=== PATIENT | female | born 1965 | race Hispanic/Latino ===

== ENCOUNTER 2020-11-13 20:53 | Inpatient (IN) | payer OTHER ==
[~2020-11-13] VITALS: Ht 157.5 cm; Wt 88.2 kg
[2020-11-13 21:04] VITALS: BP 140/73
[2020-11-13] MEDS ORDERED: 0.9%NACL 1000ML 1,000 ML IV ONE (21:30)
[2020-11-13 21:40] LABS: BASOPHILS % (AUTO) 0.3 % (0.0-5.0); EOSINOPHILS % (AUTO) 1.3 % (0.0-8.0); HEMATOCRIT 35.1 % (36-48); LYMPHOCYTES % (AUTO) 19.6 % (21.0-51.0); MEAN CORPUSCULAR HEMOGLOBIN 28.4 pg (27.0-33.0); MEAN CORPUSCULAR HGB CONC 32.2 g/dL (32.0-36.0); MEAN CORPUSCULAR VOLUME 88.2 fL (79-99); MONOCYTES % (AUTO) 8.6 % (3.0-13.0); NEUTROPHILS % (AUTO) 69.9 % (40.0-77.0); PLATELET COUNT (AUTO) 258 K/uL (130-400); RED BLOOD CELL COUNT(AUTO) 3.98 MIL/uL (4.00-5.50); RED CELL DISTRIBUTION WIDTH 14.3 % (11.0-15.5); WHITE BLOOD COUNT (AUTO) 7.5 K/uL (4.8-10.8)
[2020-11-13 21:50] LABS: INR 0.93 (0.85-1.15); PROTHROMBIN TIME 10.2 SEC (9.6-11.6)
[2020-11-13 21:51] LABS: PARTIAL THROMBOPLASTIN TIME 23.5 SEC (26.3-35.5)
[2020-11-13 22:04] LABS: B-TYPE NATRIURETIC PEPTIDE 61 pg/mL (0-100)
[2020-11-13 22:08] LABS: ALBUMIN 3.6 g/dL (3.5-5.0); BILIRUBIN,TOTAL 0.4 mg/dL (0.2-1.0); CREATININE 0.8 mg/dL (0.5-1.5); TOTAL PROTEIN, SERUM 7.2 g/dL (6.0-8.3)
[2020-11-14] VITALS (9 sets, daily range): BP systolic 128–161; BP diastolic 49–71
[2020-11-14] MEDS ORDERED: MAG/ALUM/SIMETH 30 ML UDCUP PO PRN (02:30)
[2020-11-14] MEDS ORDERED: 0.9%NACL 1000ML 1,000 ML IV ONE (02:30)
[2020-11-14] MEDS ORDERED: HYDRALAZINE 20MG/ML VIAL IV PRN (02:30)
[2020-11-14] MEDS ORDERED: ACETAMINOPHEN 325 MG TAB PO PRN ×2 (02:30)
[2020-11-14] MEDS ORDERED: ONDANSETRON 4MG INJ IV PRN (02:30)
[2020-11-14] MEDS ORDERED: NITROGLYCERIN 0.4 MG SL TAB SL PRN (02:30)
[2020-11-14] MEDS ORDERED: LACTATED RINGERS 1000ML 1,000 ML IV SCH (03:00)
[2020-11-14] MEDS: LACTATED RINGERS 1000ML 1,000 ML IV SCH ×2 (03:31→08:14)
[2020-11-14 05:49] LABS: APPEARANCE,URINE Cloudy (CLEAR); BILIRUBIN,URINE Negative (NEGATIVE); COLOR,URINE Yellow (YELLOW); GLUCOSE, URINE (UA) >=1000 mg/dL (NEGATIVE); KETONES,URINE Trace mg/dL (NEGATIVE); LEUKOCYTE ESTERASE ,URINE Negative (NEGATIVE); NITRATE,URINE Positive (NEGATIVE); OCCULT BLOOD,URINE Large (NEGATIVE); PROTEIN,URINE POS 2+ mg/dL (NEGATIVE)
[2020-11-14] MEDS ORDERED: DULO30CA52 PO (06:05)
[2020-11-14] MEDS ORDERED: ROSU40TA21 PO (06:05)
[2020-11-14] MEDS ORDERED: VITAD50000 PO (06:05)
[2020-11-14] MEDS ORDERED: AEC81 PO (06:05)
[2020-11-14] MEDS ORDERED: PIOG15TA66 PO (06:05)
[2020-11-14] MEDS ORDERED: RANO500T6 PO (06:05)
[2020-11-14] MEDS ORDERED: LEVO25TA85 PO (06:05)
[2020-11-14] MEDS ORDERED: METO25TA6 PO (06:05)
[2020-11-14 06:07] LABS: BACTERIA,URINE Many /HPF (None Seen); SQUAMOUS EPITHELIAL CELL,UR Few /HPF (0-2); YEAST,URINE BUDDING None Seen /HPF (None Seen)
[2020-11-14] MEDS ORDERED: CEFTRIAXONE 1G VIAL IVP SCH (06:30)
[2020-11-14] MEDS ORDERED: CEFTRIAXONE 1G VIAL ONE (06:33)
[2020-11-14] MEDS ORDERED: INSULIN HUMULIN R 100 UNIT/ML 3ML SQ SCH (07:30)
[2020-11-14 07:42] LABS: THYROID STIMULATING HORMONE 2.16 uIU/mL (0.36-3.74)
[2020-11-14] MEDS: INSULIN HUMULIN R 100 UNIT/ML 3ML SQ SCH ×6 (08:14→20:51)
[2020-11-14] MEDS: FAMOTIDINE 20MG TAB PO SCH ×2 (08:15→20:49)
[2020-11-14 09:00] LABS: RETICULOCYTE % (AUTO) 2.17 % (0.42-2.23)
[2020-11-14] MEDS: CEFTRIAXONE 1G VIAL IVP SCH ×2 (09:00→20:48)
[2020-11-14 09:34] LABS: % IRON SATURATION 17.6 % (22-44)
[2020-11-14] MEDS: SODIUM BICARB 8.4% 50ML SYRING 150 MEQ in DEXTROSE 5%-WATER 1,000 ML IV SCH ×2 (12:00→18:15)
[2020-11-14] MEDS: LEVOTHYROXINE 25 MCG TABLET PO SCH (13:18)
[2020-11-14] MEDS: ERGOCALCIFEROL (VITAMIN D2) 50,000 UNIT CAPSULE PO SCH (13:18)
[2020-11-14] MEDS: ASPIRIN 81 MG EC TAB PO SCH (13:18)
[2020-11-14] MEDS: METOPROLOL TARTRATE 25 MG TAB PO SCH (13:18)
[2020-11-14] MEDS: DULOXETINE HCL 30 MG CAP PO SCH ×2 (13:18→20:49)
[2020-11-14] MEDS: RANOLAZINE 500 MG TAB.SR.12H PO SCH ×2 (13:19→20:49)
[2020-11-14] MEDS ORDERED: CYANOCOBALAMIN (VITAMIN B-12) 1000 MCG/ML 1ML VIAL IM SCH (14:00)
[2020-11-14] MEDS: SOLU-MEDROL 40MG VIAL IVP SCH (20:48)
[2020-11-14] MEDS: INSULIN GLARGINE 100 UNITS/ML 10 ML VIAL SQ SCH (20:52)
[2020-11-15] MEDS ORDERED: SODIUM BICARB 50MEQ 50ML VIAL 150 ML ONE (01:29)
[2020-11-15] MEDS ORDERED: DEXTROSE 5%-WATER 1,000 ML IV ONE (01:29)
[2020-11-15] MEDS: SODIUM BICARB 8.4% 50ML SYRING 150 MEQ in DEXTROSE 5%-WATER 1,000 ML IV SCH (01:58)
[2020-11-15 03:28] VITALS: BP 138/74
[2020-11-15 06:13] LABS: CREATININE 0.7 mg/dL (0.5-1.5); MAGNESIUM 1.8 mg/dL (1.80-2.40); POTASSIUM 5.4 mmol/L (3.5-5.1)
[2020-11-15] MEDS: INSULIN HUMULIN R 100 UNIT/ML 3ML SQ SCH ×7 (06:27→21:11)
[2020-11-15] MEDS: LEVOTHYROXINE 25 MCG TABLET PO SCH (06:27)
[2020-11-15 07:00] VITALS: BP 151/57
[2020-11-15] MEDS ORDERED: NA ZIRCON CYCLOSIL(LOKELMA 10GM) PO SCH (09:00)
[2020-11-15 09:14] LABS: MYOGLOBIN 2148 ng/mL (10-92)
[2020-11-15 09:40] LABS: CREATINE KINASE, TOTAL 7982 U/L (21-232)
[2020-11-15] MEDS: CEFTRIAXONE 1G VIAL IVP SCH ×2 (10:05→21:00)
[2020-11-15] MEDS: SOLU-MEDROL 40MG VIAL IVP SCH ×2 (10:07→21:01)
[2020-11-15] MEDS: RANOLAZINE 500 MG TAB.SR.12H PO SCH ×2 (10:08→20:59)
[2020-11-15] MEDS: DULOXETINE HCL 30 MG CAP PO SCH ×2 (10:08→21:00)
[2020-11-15] MEDS: FAMOTIDINE 20MG TAB PO SCH ×2 (10:08→20:59)
[2020-11-15] MEDS: ASPIRIN 81 MG EC TAB PO SCH (10:08)
[2020-11-15] MEDS: METOPROLOL TARTRATE 25 MG TAB PO SCH (10:08)
[2020-11-15] MEDS: 0.9%NACL 1000ML 1,000 ML IV SCH ×2 (10:09→20:58)
[2020-11-15 11:00] VITALS: BP 138/77
[2020-11-15 15:00] VITALS: BP 142/84
[2020-11-15 19:59] VITALS: BP 137/48
[2020-11-15] MEDS: INSULIN GLARGINE 100 UNITS/ML 10 ML VIAL SQ SCH (21:11)
[2020-11-16] VITALS (17 sets, daily range): BP systolic 125–170; BP diastolic 58–80
[2020-11-16] MEDS: INSULIN HUMULIN R 100 UNIT/ML 3ML SQ SCH ×8 (00:43→21:19)
[2020-11-16 04:21] LABS: HEMATOCRIT 35.6 % (36-48); MEAN CORPUSCULAR HEMOGLOBIN 27.7 pg (27.0-33.0); MEAN CORPUSCULAR HGB CONC 31.5 g/dL (32.0-36.0); MEAN CORPUSCULAR VOLUME 88.1 fL (79-99); RED BLOOD CELL COUNT(AUTO) 4.04 MIL/uL (4.00-5.50); RED CELL DISTRIBUTION WIDTH 14.5 % (11.0-15.5); WHITE BLOOD COUNT (AUTO) 12.4 K/uL (4.8-10.8)
[2020-11-16 05:08] LABS: ALBUMIN 3.1 g/dL (3.5-5.0); BILIRUBIN,TOTAL 0.1 mg/dL (0.2-1.0); CREATININE 0.7 mg/dL (0.5-1.5); POTASSIUM 4.1 mmol/L (3.5-5.1)
[2020-11-16] MEDS: LEVOTHYROXINE 25 MCG TABLET PO SCH (05:37)
[2020-11-16] MEDS: 0.9%NACL 1000ML 1,000 ML IV SCH (05:51)
[2020-11-16] MEDS: CEFTRIAXONE 1G VIAL IVP SCH (08:32)
[2020-11-16] MEDS: SOLU-MEDROL 40MG VIAL IVP SCH ×2 (08:32→21:16)
[2020-11-16] MEDS: INSULIN GLARGINE 100 UNITS/ML 10 ML VIAL SQ SCH ×2 (08:34→21:17)
[2020-11-16 09:19] LABS: MYOGLOBIN 1789 ng/mL (10-92)
[2020-11-16 09:32] LABS: CREATINE KINASE, TOTAL 3943 U/L (21-232)
[2020-11-16] MEDS: MEROPENEM 1 GM VIAL IVP SCH ×2 (14:22→21:15)
[2020-11-16] MEDS ORDERED: PROPOFOL 1000 MG/100 ML 100 ML IV ONE (17:06)
[2020-11-16] MEDS ORDERED: KETAMINE 50MG/ML SYRINGE 50 MG/ML DISP.SYRIN IV ONE (17:07)
[2020-11-16] MEDS ORDERED: MIDAZOLAM HCL 1 MG/ML 2ML VIAL ONE (17:09)
[2020-11-16] MEDS ORDERED: FENTANYL CITRATE PF 50 MCG/1 ML 2ML VIAL ONE (17:10)
[2020-11-16] MEDS ORDERED: BUPIVACAINE/EPI/PF 0.5% 30ML VIAL IJ ONE (17:22)
[2020-11-16] MEDS ORDERED: MORPHINE 4 MG SYG IV PRN (18:00)
[2020-11-16] MEDS ORDERED: ONDANSETRON 4MG INJ IVP PRN (18:00)
[2020-11-16] MEDS: FAMOTIDINE 20MG TAB PO SCH ×2 (18:32→21:16)
[2020-11-16] MEDS: DULOXETINE HCL 30 MG CAP PO SCH ×2 (18:32→21:22)
[2020-11-16] MEDS: RANOLAZINE 500 MG TAB.SR.12H PO SCH ×2 (18:32→21:16)
[2020-11-16] MEDS: METOPROLOL TARTRATE 25 MG TAB PO SCH (18:32)
[2020-11-16] MEDS: ASPIRIN 81 MG EC TAB PO SCH (18:32)
[2020-11-17] MEDS: 0.9%NACL 1000ML 1,000 ML IV SCH ×3 (01:29→20:40)
[2020-11-17 03:41] VITALS: BP 137/60
[2020-11-17 04:55] LABS: BASOPHILS % (AUTO) 0.1 % (0.0-5.0); HEMATOCRIT 33.5 % (36-48); LYMPHOCYTES % (AUTO) 8.3 % (21.0-51.0); MEAN CORPUSCULAR HEMOGLOBIN 28.4 pg (27.0-33.0); MEAN CORPUSCULAR HGB CONC 31.9 g/dL (32.0-36.0); MEAN CORPUSCULAR VOLUME 88.9 fL (79-99); NEUTROPHILS % (AUTO) 87.1 % (40.0-77.0); PLATELET COUNT (AUTO) 286 K/uL (130-400); RED BLOOD CELL COUNT(AUTO) 3.77 MIL/uL (4.00-5.50); RED CELL DISTRIBUTION WIDTH 14.9 % (11.0-15.5); WHITE BLOOD COUNT (AUTO) 11.8 K/uL (4.8-10.8)
[2020-11-17] MEDS: LEVOTHYROXINE 25 MCG TABLET PO SCH (05:06)
[2020-11-17] MEDS: MEROPENEM 1 GM VIAL IVP SCH ×3 (05:06→20:44)
[2020-11-17 05:19] LABS: BILIRUBIN,TOTAL 0.2 mg/dL (0.2-1.0); CREATININE 0.6 mg/dL (0.5-1.5); POTASSIUM 4.5 mmol/L (3.5-5.1); TOTAL PROTEIN, SERUM 6.7 g/dL (6.0-8.3)
[2020-11-17] MEDS: INSULIN HUMULIN R 100 UNIT/ML 3ML SQ SCH ×7 (05:57→21:01)
[2020-11-17 08:00] VITALS: BP 138/70
[2020-11-17] MEDS: RANOLAZINE 500 MG TAB.SR.12H PO SCH ×2 (08:52→20:44)
[2020-11-17] MEDS: METOPROLOL TARTRATE 25 MG TAB PO SCH (08:52)
[2020-11-17] MEDS: ASPIRIN 81 MG EC TAB PO SCH (08:52)
[2020-11-17] MEDS: DULOXETINE HCL 30 MG CAP PO SCH ×2 (08:52→20:45)
[2020-11-17] MEDS: FAMOTIDINE 20MG TAB PO SCH ×2 (08:53→20:45)
[2020-11-17] MEDS: PREDNISONE 20 MG TABLET PO SCH (08:53)
[2020-11-17] MEDS: INSULIN GLARGINE 100 UNITS/ML 10 ML VIAL SQ SCH ×2 (08:54→20:58)
[2020-11-17] MEDS ORDERED: DULOXETINE HCL 30 MG CAP PO SCH (09:00)
[2020-11-17 12:00] VITALS: BP 147/69
[2020-11-17] MEDS ORDERED: IOHEXOL-350 50ML VIAL IV ONE (14:46)
[2020-11-17 16:00] VITALS: BP 165/80
[2020-11-17 16:07] LABS: INR 0.98 (0.85-1.15); PROTHROMBIN TIME 10.7 SEC (9.6-11.6)
[2020-11-17 19:45] VITALS: BP 164/73
[2020-11-17 23:58] VITALS: BP 147/85
[2020-11-18 03:50] VITALS: BP_SYST 151; BP_SYST 169; BP_DIAS 73; BP_DIAS 78
[2020-11-18] MEDS: INSULIN HUMULIN R 100 UNIT/ML 3ML SQ SCH ×7 (05:37→20:47)
[2020-11-18] MEDS: MEROPENEM 1 GM VIAL IVP SCH ×3 (05:48→20:48)
[2020-11-18] MEDS: LEVOTHYROXINE 25 MCG TABLET PO SCH (05:48)
[2020-11-18 06:45] LABS: BASOPHILS % (AUTO) 0.1 % (0.0-5.0); EOSINOPHILS % (AUTO) 0.1 % (0.0-8.0); HEMATOCRIT 34.3 % (36-48); MEAN CORPUSCULAR HEMOGLOBIN 28.3 pg (27.0-33.0); MEAN CORPUSCULAR HGB CONC 31.8 g/dL (32.0-36.0); MEAN CORPUSCULAR VOLUME 89.1 fL (79-99); MONOCYTES % (AUTO) 8.8 % (3.0-13.0); NEUTROPHILS % (AUTO) 67.1 % (40.0-77.0); PLATELET COUNT (AUTO) 282 K/uL (130-400); RED BLOOD CELL COUNT(AUTO) 3.85 MIL/uL (4.00-5.50); RED CELL DISTRIBUTION WIDTH 14.6 % (11.0-15.5); WHITE BLOOD COUNT (AUTO) 12.1 K/uL (4.8-10.8)
[2020-11-18 07:23] LABS: ALBUMIN 2.8 g/dL (3.5-5.0); BILIRUBIN,TOTAL 0.2 mg/dL (0.2-1.0); CREATININE 0.6 mg/dL (0.5-1.5); TOTAL PROTEIN, SERUM 6.3 g/dL (6.0-8.3)
[2020-11-18] MEDS ORDERED: INSULIN HUMULIN R 100 UNIT/ML 3ML SQ SCH (07:30)
[2020-11-18 08:00] VITALS: BP 141/83
[2020-11-18] MEDS: INSULIN GLARGINE 100 UNITS/ML 10 ML VIAL SQ SCH ×2 (09:36→20:46)
[2020-11-18] MEDS: RANOLAZINE 500 MG TAB.SR.12H PO SCH ×2 (09:40→20:45)
[2020-11-18] MEDS: PREDNISONE 20 MG TABLET PO SCH (09:40)
[2020-11-18] MEDS: METOPROLOL TARTRATE 25 MG TAB PO SCH (09:40)
[2020-11-18] MEDS: FAMOTIDINE 20MG TAB PO SCH ×2 (09:40→20:45)
[2020-11-18] MEDS: DULOXETINE HCL 30 MG CAP PO SCH ×2 (09:40→20:45)
[2020-11-18] MEDS: ASPIRIN 81 MG EC TAB PO SCH (09:40)
[2020-11-18] MEDS: 0.9%NACL 1000ML 1,000 ML IV SCH (10:00)
[2020-11-18 12:00] VITALS: BP 123/72
[2020-11-18 16:00] VITALS: BP 146/80
[2020-11-18 20:10] VITALS: BP 163/81
[2020-11-18] MEDS: LACTULOSE 20 GM/30 ML UDCUP PO PRN (20:45)
[2020-11-18 23:37] VITALS: BP 164/76
[2020-11-19] MEDS: MEROPENEM 1 GM VIAL IVP SCH ×3 (03:08→20:18)
[2020-11-19] MEDS: 0.9%NACL 1000ML 1,000 ML IV SCH ×2 (03:09→20:23)
[2020-11-19 03:57] VITALS: BP 148/65
[2020-11-19 04:24] LABS: BASOPHILS % (AUTO) 0.2 % (0.0-5.0); EOSINOPHILS % (AUTO) 0.5 % (0.0-8.0); HEMATOCRIT 37.4 % (36-48); LYMPHOCYTES % (AUTO) 27.1 % (21.0-51.0); MEAN CORPUSCULAR HEMOGLOBIN 27.9 pg (27.0-33.0); MEAN CORPUSCULAR HGB CONC 31.8 g/dL (32.0-36.0); MEAN CORPUSCULAR VOLUME 87.6 fL (79-99); MONOCYTES % (AUTO) 10.9 % (3.0-13.0); NEUTROPHILS % (AUTO) 60.3 % (40.0-77.0); NUCLEATED RED BLOOD CELLS 0.2 % (0.0-0.19); PLATELET COUNT (AUTO) 320 K/uL (130-400); RED BLOOD CELL COUNT(AUTO) 4.27 MIL/uL (4.00-5.50); RED CELL DISTRIBUTION WIDTH 14.4 % (11.0-15.5); WHITE BLOOD COUNT (AUTO) 12.3 K/uL (4.8-10.8)
[2020-11-19 04:32] LABS: CREATININE 0.6 mg/dL (0.5-1.5); POTASSIUM 3.9 mmol/L (3.5-5.1)
[2020-11-19] MEDS: LEVOTHYROXINE 25 MCG TABLET PO SCH (05:28)
[2020-11-19] MEDS: INSULIN HUMULIN R 100 UNIT/ML 3ML SQ SCH ×7 (06:00→20:22)
[2020-11-19 07:39] VITALS: BP 132/65
[2020-11-19] MEDS ORDERED: INSULIN HUMULIN R 100 UNIT/ML 3ML SQ SCH (08:00)
[2020-11-19] MEDS: ASPIRIN 81 MG EC TAB PO SCH (09:50)
[2020-11-19] MEDS: PREDNISONE 20 MG TABLET PO SCH (09:51)
[2020-11-19] MEDS: DULOXETINE HCL 30 MG CAP PO SCH ×2 (09:51→20:19)
[2020-11-19] MEDS: METOPROLOL TARTRATE 25 MG TAB PO SCH (09:51)
[2020-11-19] MEDS: FAMOTIDINE 20MG TAB PO SCH ×2 (09:51→20:19)
[2020-11-19] MEDS: RANOLAZINE 500 MG TAB.SR.12H PO SCH ×2 (09:51→20:18)
[2020-11-19] MEDS: INSULIN GLARGINE 100 UNITS/ML 10 ML VIAL SQ SCH ×2 (10:27→20:21)
[2020-11-19] MEDS: ENOXAPARIN SODIUM 40 MG/0.4 ML SYRINGE SQ SCH (10:29)
[2020-11-19 11:51] VITALS: BP 128/47
[2020-11-19 12:43] LABS: INR 1.01 (0.85-1.15)
[2020-11-19 12:44] LABS: PARTIAL THROMBOPLASTIN TIME 27.9 SEC (26.3-35.5)
[2020-11-19] MEDS: LACTULOSE 20 GM/30 ML UDCUP PO PRN ×2 (14:17→20:19)
[2020-11-19 16:19] VITALS: BP 139/64
[2020-11-19 20:20] VITALS: BP 149/68
[2020-11-19 23:49] VITALS: BP 142/58
[2020-11-20 03:53] VITALS: BP 124/62
[2020-11-20] MEDS: MEROPENEM 1 GM VIAL IVP SCH ×3 (04:27→21:16)
[2020-11-20] MEDS: LEVOTHYROXINE 25 MCG TABLET PO SCH (04:28)
[2020-11-20] MEDS: INSULIN HUMULIN R 100 UNIT/ML 3ML SQ SCH ×7 (05:48→21:46)
[2020-11-20 07:16] LABS: CREATININE 0.6 mg/dL (0.5-1.5); POTASSIUM 3.9 mmol/L (3.5-5.1)
[2020-11-20 08:00] VITALS: BP 154/79
[2020-11-20] MEDS: METOPROLOL TARTRATE 25 MG TAB PO SCH (09:42)
[2020-11-20] MEDS: PREDNISONE 20 MG TABLET PO SCH (09:42)
[2020-11-20] MEDS: ASPIRIN 81 MG EC TAB PO SCH (09:42)
[2020-11-20] MEDS: FAMOTIDINE 20MG TAB PO SCH ×2 (09:42→21:16)
[2020-11-20] MEDS: DULOXETINE HCL 30 MG CAP PO SCH ×2 (09:42→21:16)
[2020-11-20] MEDS: RANOLAZINE 500 MG TAB.SR.12H PO SCH ×2 (09:42→21:16)
[2020-11-20] MEDS: ENOXAPARIN SODIUM 40 MG/0.4 ML SYRINGE SQ SCH (09:43)
[2020-11-20] MEDS: INSULIN GLARGINE 100 UNITS/ML 10 ML VIAL SQ SCH ×2 (09:51→21:47)
[2020-11-20] MEDS ORDERED: AMLODIPINE 5 MG TAB PO SCH (10:30)
[2020-11-20 11:39] VITALS: BP 134/74
[2020-11-20] MEDS: 0.9%NACL 1000ML 1,000 ML IV SCH (12:15)
[2020-11-20 15:55] VITALS: BP 133/69
[2020-11-20] MEDS ORDERED: BISACODYL 10 MG SUPP.RECT RC ONE (20:00)
[2020-11-20 20:02] VITALS: BP 130/75
[2020-11-20 23:17] VITALS: BP 131/73
[2020-11-21] MEDS: MEROPENEM 1 GM VIAL IVP SCH ×3 (03:40→21:41)
[2020-11-21] MEDS: 0.9%NACL 1000ML 1,000 ML IV SCH ×2 (03:41→21:41)
[2020-11-21 03:46] LABS: BASOPHILS % (AUTO) 0.1 % (0.0-5.0); EOSINOPHILS % (AUTO) 0.6 % (0.0-8.0); HEMATOCRIT 35.5 % (36-48); LYMPHOCYTES % (AUTO) 20.1 % (21.0-51.0); MEAN CORPUSCULAR HEMOGLOBIN 28.3 pg (27.0-33.0); MEAN CORPUSCULAR HGB CONC 32.4 g/dL (32.0-36.0); MEAN CORPUSCULAR VOLUME 87.2 fL (79-99); MONOCYTES % (AUTO) 9.2 % (3.0-13.0); NEUTROPHILS % (AUTO) 69.2 % (40.0-77.0); PLATELET COUNT (AUTO) 291 K/uL (130-400); RED BLOOD CELL COUNT(AUTO) 4.07 MIL/uL (4.00-5.50); RED CELL DISTRIBUTION WIDTH 14.3 % (11.0-15.5); WHITE BLOOD COUNT (AUTO) 14.5 K/uL (4.8-10.8)
[2020-11-21 03:49] VITALS: BP 136/74
[2020-11-21 04:34] LABS: CREATININE 0.5 mg/dL (0.5-1.5); POTASSIUM 3.9 mmol/L (3.5-5.1)
[2020-11-21] MEDS: INSULIN HUMULIN R 100 UNIT/ML 3ML SQ SCH ×7 (05:24→23:14)
[2020-11-21] MEDS: LEVOTHYROXINE 25 MCG TABLET PO SCH (05:31)
[2020-11-21 08:00] VITALS: BP 119/62
[2020-11-21] MEDS: RANOLAZINE 500 MG TAB.SR.12H PO SCH ×2 (08:54→21:41)
[2020-11-21] MEDS: DULOXETINE HCL 30 MG CAP PO SCH ×2 (08:54→21:41)
[2020-11-21] MEDS: FAMOTIDINE 20MG TAB PO SCH ×2 (08:54→21:41)
[2020-11-21] MEDS: PREDNISONE 20 MG TABLET PO SCH (08:54)
[2020-11-21] MEDS: METOPROLOL TARTRATE 25 MG TAB PO SCH (08:54)
[2020-11-21] MEDS: ASPIRIN 81 MG EC TAB PO SCH (08:54)
[2020-11-21] MEDS: ENOXAPARIN SODIUM 40 MG/0.4 ML SYRINGE SQ SCH (08:54)
[2020-11-21] MEDS: INSULIN GLARGINE 100 UNITS/ML 10 ML VIAL SQ SCH ×2 (08:56→23:13)
[2020-11-21] MEDS: ERGOCALCIFEROL (VITAMIN D2) 50,000 UNIT CAPSULE PO SCH (10:09)
[2020-11-21 12:00] VITALS: BP 120/61
[2020-11-21 16:00] VITALS: BP 136/63
[2020-11-21 20:00] VITALS: BP 128/60
[2020-11-22] VITALS: BP 138/68
[2020-11-22 04:00] VITALS: BP 146/66
[2020-11-22 04:17] LABS: BASOPHILS % (AUTO) 0.2 % (0.0-5.0); EOSINOPHILS % (AUTO) 0.6 % (0.0-8.0); HEMATOCRIT 35.9 % (36-48); LYMPHOCYTES % (AUTO) 23.4 % (21.0-51.0); MEAN CORPUSCULAR HEMOGLOBIN 28.6 pg (27.0-33.0); MEAN CORPUSCULAR HGB CONC 31.8 g/dL (32.0-36.0); MEAN CORPUSCULAR VOLUME 90.2 fL (79-99); MONOCYTES % (AUTO) 9.2 % (3.0-13.0); NEUTROPHILS % (AUTO) 65.9 % (40.0-77.0); PLATELET COUNT (AUTO) 308 K/uL (130-400); RED BLOOD CELL COUNT(AUTO) 3.98 MIL/uL (4.00-5.50); RED CELL DISTRIBUTION WIDTH 14.6 % (11.0-15.5); WHITE BLOOD COUNT (AUTO) 14.4 K/uL (4.8-10.8)
[2020-11-22 05:08] LABS: CARBON DIOXIDE 33 mmol/L (21-32); CHLORIDE 100 mmol/L (101-111); CREATININE 0.5 mg/dL (0.5-1.5); GLOMERULAR FILTR. RATE CALC 136 mL/min (>60); GLUCOSE,RANDOM 115 mg/dL (70-105); MYOGLOBIN 1882 ng/mL (10-92); POTASSIUM 3.6 mmol/L (3.5-5.1); SODIUM SERUM 136 mmol/L (136-145); THYROID STIMULATING HORMONE 1.51 uIU/mL (0.36-3.74); UREA NITROGEN, BLOOD 23 mg/dL (7-18)
[2020-11-22 05:20] LABS: CREATINE KINASE, TOTAL 1968 U/L (21-232); CRP QUANTITATIVE < 2.00 mg/L (0.00-9.0)
[2020-11-22] MEDS: MEROPENEM 1 GM VIAL IVP SCH ×3 (06:25→22:08)
[2020-11-22] MEDS: LEVOTHYROXINE 25 MCG TABLET PO SCH (06:25)
[2020-11-22] MEDS: INSULIN HUMULIN R 100 UNIT/ML 3ML SQ SCH ×7 (08:00→22:39)
[2020-11-22 08:51] VITALS: BP 135/70
[2020-11-22] MEDS: RANOLAZINE 500 MG TAB.SR.12H PO SCH ×2 (10:01→22:04)
[2020-11-22] MEDS: ASPIRIN 81 MG EC TAB PO SCH (10:01)
[2020-11-22] MEDS: PREDNISONE 20 MG TABLET PO SCH (10:01)
[2020-11-22] MEDS: DULOXETINE HCL 30 MG CAP PO SCH ×2 (10:01→22:04)
[2020-11-22] MEDS: FAMOTIDINE 20MG TAB PO SCH ×2 (10:01→22:04)
[2020-11-22] MEDS: METOPROLOL TARTRATE 25 MG TAB PO SCH (10:01)
[2020-11-22] MEDS: ENOXAPARIN SODIUM 40 MG/0.4 ML SYRINGE SQ SCH (10:02)
[2020-11-22] MEDS: INSULIN GLARGINE 100 UNITS/ML 10 ML VIAL SQ SCH (10:03)
[2020-11-22 12:30] VITALS: BP 134/78
[2020-11-22] MEDS: 0.9%NACL 1000ML 1,000 ML IV SCH ×2 (12:34→15:16)
[2020-11-22 15:43] VITALS: BP 140/59
[2020-11-22 20:00] VITALS: BP 135/67
[2020-11-22] MEDS ORDERED: INSULIN GLARGINE 100 UNITS/ML 10 ML VIAL SQ SCH (21:00)
[2020-11-23] VITALS: BP 146/67
[2020-11-23] MEDS ORDERED: DOCUSATE SODIUM 100 MG CAP PO PRN (01:00)
[2020-11-23] MEDS ORDERED: LORAZEPAM 0.5 MG TABLET PO SCH (01:00)
[2020-11-23 04:00] VITALS: BP 145/72
[2020-11-23] MEDS: MEROPENEM 1 GM VIAL IVP SCH ×2 (05:24→12:52)
[2020-11-23 05:32] LABS: BASOPHILS % (AUTO) 0.1 % (0.0-5.0); EOSINOPHILS % (AUTO) 0.4 % (0.0-8.0); HEMATOCRIT 34.1 % (36-48); LYMPHOCYTES % (AUTO) 25.7 % (21.0-51.0); MEAN CORPUSCULAR HEMOGLOBIN 28.4 pg (27.0-33.0); MEAN CORPUSCULAR HGB CONC 32.6 g/dL (32.0-36.0); MEAN CORPUSCULAR VOLUME 87.2 fL (79-99); MONOCYTES % (AUTO) 11.1 % (3.0-13.0); NEUTROPHILS % (AUTO) 61.8 % (40.0-77.0); PLATELET COUNT (AUTO) 293 K/uL (130-400); RED BLOOD CELL COUNT(AUTO) 3.91 MIL/uL (4.00-5.50); RED CELL DISTRIBUTION WIDTH 14.2 % (11.0-15.5); WHITE BLOOD COUNT (AUTO) 13.9 K/uL (4.8-10.8)
[2020-11-23 05:38] LABS: CREATININE 0.4 mg/dL (0.5-1.5); POTASSIUM 4.2 mmol/L (3.5-5.1)
[2020-11-23] MEDS: INSULIN HUMULIN R 100 UNIT/ML 3ML SQ SCH ×6 (06:00→17:12)
[2020-11-23] MEDS: LEVOTHYROXINE 25 MCG TABLET PO SCH (06:13)
[2020-11-23 07:30] VITALS: BP 129/73
[2020-11-23] MEDS ORDERED: INSULIN GLARGINE 100 UNITS/ML 10 ML VIAL SQ SCH (09:00)
[2020-11-23] MEDS: DULOXETINE HCL 30 MG CAP PO SCH (09:40)
[2020-11-23] MEDS: RANOLAZINE 500 MG TAB.SR.12H PO SCH (09:40)
[2020-11-23] MEDS: METOPROLOL TARTRATE 25 MG TAB PO SCH (09:41)
[2020-11-23] MEDS: FAMOTIDINE 20MG TAB PO SCH (09:41)
[2020-11-23] MEDS: PREDNISONE 20 MG TABLET PO SCH (09:41)
[2020-11-23] MEDS: ASPIRIN 81 MG EC TAB PO SCH (09:41)
[2020-11-23] MEDS: ENOXAPARIN SODIUM 40 MG/0.4 ML SYRINGE SQ SCH (09:42)
[2020-11-23 11:00] VITALS: BP 150/82
[2020-11-23 16:00] VITALS: BP 128/80
== END 2020-11-23 21:15 | DRG 501 ==
LOC: EDH 20:53 → EDHIP 11-14 04:44 → 4CH 11-14 08:43
PROVIDERS: ADMIT Internal Medicine; ATTEND Internal Medicine
PROC: 0KBP0ZX Excision of Left Hip Muscle, Open Approach, Diagnostic (ICD-10-PCS; principal; 2020-11-16 17:08)
PROC: 02HV33Z Insertion of Infusion Device into Superior Vena Cava, Percutaneous Approach (ICD-10-PCS; 2020-11-19)
DX: T79.6XXA Traumatic ischemia of muscle, initial encounter (principal); M33.20 Polymyositis, organ involvement unspecified; N39.0 Urinary tract infection, site not specified; Z16.24 Resistance to multiple antibiotics; Z16.12 Extended spectrum beta lactamase (ESBL) resistance; Z88.5 Allergy status to narcotic agent; Z20.822 Contact with and (suspected) exposure to COVID-19; E78.00 Pure hypercholesterolemia, unspecified; E11.65 Type 2 diabetes mellitus with hyperglycemia; E11.649 Type 2 diabetes mellitus with hypoglycemia without coma; E78.5 Hyperlipidemia, unspecified; E03.9 Hypothyroidism, unspecified; I10 Essential (primary) hypertension; I25.10 Atherosclerotic heart disease of native coronary artery without angina pectoris; E66.9 Obesity, unspecified; Z68.35 Body mass index [BMI] 35.0-35.9, adult; F32.9 Major depressive disorder, single episode, unspecified; T38.0X5A Adverse effect of glucocorticoids and synthetic analogues, initial encounter; N19 Unspecified kidney failure; B96.20 Unspecified Escherichia coli [E. coli] as the cause of diseases classified elsewhere; M48.00 Spinal stenosis, site unspecified; R13.10 Dysphagia, unspecified; W07.XXXA Fall from chair, initial encounter; Y93.89 Activity, other specified; Y92.098 Other place in other non-institutional residence as the place of occurrence of the external cause; Y99.8 Other external cause status; Z74.01 Bed confinement status; Z90.710 Acquired absence of both cervix and uterus; Z95.5 Presence of coronary angioplasty implant and graft; Z79.52 Long term (current) use of systemic steroids; Z79.84 Long term (current) use of oral hypoglycemic drugs; Z83.3 Family history of diabetes mellitus
CPT/HCPCS: 36415; 70450; 70470; 71045; 72141; 80048; 80053; 80061; 81001; 82085; 82550; 82607; 82746; 82947; 82948; 83036; 83540; 83550; 83735; 83874; 83880; 84132; 84443; 84484; 85025; 85027; 85045; 85610; 85651; 85730; 86140; 87077; 87088; 87186; 87635; 93005; 97039; C1894; G0378; J0696; J1650; J1815; J2185; J2250; J2270; J2704; J2920; J3010; J3420; J3490; J7030; J7070; Q9967

== ENCOUNTER 2021-01-19 09:00 | Inpatient (IN) | payer OTHER ==
[~2021-01-19] VITALS: Ht 157.5 cm; Wt 83.3 kg
[~2021-01-19 09:00] MED LIST: AEC81 PO; DULO30CA52 PO; LEVO25TA85 PO; METO25TA6 PO; PIOG15TA66 PO; RANO500T6 PO; ROSU40TA21 PO; VITAD50000 PO
[2021-01-19 09:53] LABS: BASOPHILS % (AUTO) 0.3 % (0.0-5.0); EOSINOPHILS % (AUTO) 0.5 % (0.0-8.0); HEMATOCRIT 34.6 % (36-48); LYMPHOCYTES % (AUTO) 16.3 % (21.0-51.0); MEAN CORPUSCULAR HEMOGLOBIN 28.5 pg (27.0-33.0); MEAN CORPUSCULAR HGB CONC 32.7 g/dL (32.0-36.0); MEAN CORPUSCULAR VOLUME 87.4 fL (79-99); MONOCYTES % (AUTO) 7.8 % (3.0-13.0); NEUTROPHILS % (AUTO) 74.5 % (40.0-77.0); PLATELET COUNT (AUTO) 283 K/uL (130-400); RED BLOOD CELL COUNT(AUTO) 3.96 MIL/uL (4.00-5.50); RED CELL DISTRIBUTION WIDTH 14.3 % (11.0-15.5); WHITE BLOOD COUNT (AUTO) 9.4 K/uL (4.8-10.8)
[2021-01-19 10:05] LABS: INR 0.97 (0.85-1.15); PROTHROMBIN TIME 10.6 SEC (9.6-11.6)
[2021-01-19 10:06] LABS: CREATININE 0.7 mg/dL (0.5-1.5); POTASSIUM 4.4 mmol/L (3.5-5.1)
[2021-01-19 10:07] LABS: PARTIAL THROMBOPLASTIN TIME 24.5 SEC (26.3-35.5)
[2021-01-19 10:08] LABS: ALBUMIN 3.4 g/dL (3.5-5.0); BILIRUBIN,TOTAL 0.4 mg/dL (0.2-1.0); TOTAL PROTEIN, SERUM 6.9 g/dL (6.0-8.3)
[2021-01-19] MEDS ORDERED: MORPHINE 4 MG SYG IM SCH (11:30)
[2021-01-19] MEDS ORDERED: ONDANSETRON 4MG INJ IVP SCH (11:30)
[2021-01-19] MEDS ORDERED: MORPHINE 4 MG SYG IV PRN ×2 (12:30→15:30)
[2021-01-19] MEDS ORDERED: ACETAMINOPHEN 325 MG TAB PO PRN (12:30)
[2021-01-19] MEDS ORDERED: ZOLPIDEM TARTRATE 5 MG TAB PO PRN (12:30)
[2021-01-19] MEDS ORDERED: DiphenhydrAMINE HCL 50 MG/ML VIAL IV PRN (12:30)
[2021-01-19] MEDS ORDERED: DEXTROSE 50%-WATER 50 ML DISP.SYRIN IV PRN (12:30)
[2021-01-19] MEDS ORDERED: GLUCAGON 1MG KIT 1 MG ML IM PRN (12:30)
[2021-01-19] MEDS ORDERED: ONDANSETRON 4MG INJ IV PRN (12:30)
[2021-01-19 12:49] LABS: HEMOGLOBIN A1C 10.4 % (4.0-6.0)
[2021-01-19] MEDS ORDERED: MORPHINE 2 MG SYG IVP PRN (15:30)
[2021-01-19] MEDS ORDERED: MORPHINE 2 MG SYG ONE (15:34)
[2021-01-19] MEDS: INSULIN HUMULIN R 100 UNIT/ML 3ML SQ SCH ×2 (16:15→20:49)
[2021-01-19 17:30] VITALS: BP 120/56
[2021-01-19] MEDS ORDERED: FAMO-136 PO (17:44)
[2021-01-19] MEDS ORDERED: POLY17PO4 PO (17:45)
[2021-01-19] MEDS ORDERED: DOCU-116 PO (17:45)
[2021-01-19] MEDS ORDERED: INSLAN SQ (17:49)
[2021-01-19] MEDS ORDERED: HYDROMORPHONE 1 MG INJ IVP ONE (18:30)
[2021-01-19 19:00] VITALS: BP 130/64
[2021-01-19] MEDS: FAMOTIDINE 20MG VIAL IV SCH (20:48)
[2021-01-19] MEDS: MORPHINE 4 MG SYG IV PRN (22:15)
[2021-01-19 23:27] VITALS: BP 148/78
[2021-01-20] VITALS (23 sets, daily range): BP systolic 117–165; BP diastolic 61–85
[2021-01-20] MEDS: MORPHINE 4 MG SYG IV PRN (03:01)
[2021-01-20 05:31] LABS: BASOPHILS % (AUTO) 0.3 % (0.0-5.0); EOSINOPHILS % (AUTO) 0.4 % (0.0-8.0); HEMATOCRIT 36.8 % (36-48); LYMPHOCYTES % (AUTO) 14.5 % (21.0-51.0); MEAN CORPUSCULAR HEMOGLOBIN 28.7 pg (27.0-33.0); MEAN CORPUSCULAR VOLUME 92.7 fL (79-99); MONOCYTES % (AUTO) 8.7 % (3.0-13.0); NEUTROPHILS % (AUTO) 75.5 % (40.0-77.0); PLATELET COUNT (AUTO) 287 K/uL (130-400); RED BLOOD CELL COUNT(AUTO) 3.97 MIL/uL (4.00-5.50); RED CELL DISTRIBUTION WIDTH 14.4 % (11.0-15.5); WHITE BLOOD COUNT (AUTO) 9.8 K/uL (4.8-10.8)
[2021-01-20 05:42] LABS: ALBUMIN 3.4 g/dL (3.5-5.0); BILIRUBIN,TOTAL 0.5 mg/dL (0.2-1.0); CREATININE 0.6 mg/dL (0.5-1.5); POTASSIUM 4.4 mmol/L (3.5-5.1); TOTAL PROTEIN, SERUM 7.3 g/dL (6.0-8.3)
[2021-01-20] MEDS ORDERED: HYDROMORPHONE 1 MG INJ ONE (06:16)
[2021-01-20] MEDS ORDERED: HYDROMORPHONE 0.5 MG SYG (0.5MG/0.5ML) IVP PRN (06:30)
[2021-01-20] MEDS ORDERED: HYDROMORPHONE 1 MG INJ IVP PRN (06:30)
[2021-01-20] MEDS: INSULIN HUMULIN R 100 UNIT/ML 3ML SQ SCH ×4 (06:42→21:27)
[2021-01-20] MEDS: ENOXAPARIN SODIUM 30 MG/0.3 ML SQ SCH (09:00)
[2021-01-20] MEDS: FAMOTIDINE 20MG VIAL IV SCH ×2 (09:37→20:39)
[2021-01-20] MEDS ORDERED: 0.9%NACL 1000ML 1,000 ML IV ONE (12:00)
[2021-01-20] MEDS ORDERED: CEFAZOLIN SODIUM 1 GM VIAL ONE (12:02)
[2021-01-20] MEDS ORDERED: SUCCINYLCHOLINE CHLORIDE 20 MG/ML 10 ML VIAL ONE (12:19)
[2021-01-20] MEDS ORDERED: PROPOFOL 10 MG/ML 20ML VIAL IV ONE (12:19)
[2021-01-20] MEDS ORDERED: MIDAZOLAM HCL 1 MG/ML 2ML VIAL ONE (12:19)
[2021-01-20] MEDS ORDERED: LIDOCAINE PF 100MG/5ML (2%) SYRINGE 5ML ONE (12:19)
[2021-01-20] MEDS ORDERED: FENTANYL CITRATE PF 50 MCG/1 ML 2ML VIAL ONE (12:20)
[2021-01-20] MEDS ORDERED: ROCURONIUM 10MG/1ML SYR 10 MG/ML ML ONE (12:20)
[2021-01-20] MEDS ORDERED: ONDANSETRON 4MG INJ ONE (12:21)
[2021-01-20] MEDS ORDERED: ROPIVACAINE 0.5% 5MG/ML 30ML IJ ONE (12:25)
[2021-01-20] MEDS ORDERED: DEXAMETHASONE SOD PHOSPHATE 10MG/ML 1ML VIAL ONE (12:30)
[2021-01-20] MEDS ORDERED: EPHEDRINE SULFATE 50 MG/ML AMPULE ONE (13:44)
[2021-01-20] MEDS ORDERED: GLYCOPYRROLATE 1 MG/5 ML SYRINGE ONE (13:56)
[2021-01-20] MEDS ORDERED: NEOSTIGMINE 5MG/5ML SYR IV ONE (13:56)
[2021-01-20] MEDS ORDERED: MEPERIDINE-PF 25 MG/ML SYG ONE (14:49)
[2021-01-20] MEDS: METFORMIN HCL 500 MG TABLET PO SCH (16:06)
[2021-01-20] MEDS: RANOLAZINE 500 MG TAB.SR.12H PO SCH (20:38)
[2021-01-20] MEDS: DOCUSATE SODIUM 100 MG CAP PO SCH (20:39)
[2021-01-20] MEDS: DULOXETINE HCL 30 MG CAP PO SCH (20:40)
[2021-01-20] MEDS: INSULIN GLARGINE 100 UNITS/ML 10 ML VIAL SQ SCH (21:28)
[2021-01-21 00:10] VITALS: BP 121/69
[2021-01-21 04:16] VITALS: BP 116/68
[2021-01-21] MEDS: LEVOTHYROXINE 25 MCG TABLET PO SCH (06:22)
[2021-01-21] MEDS: INSULIN HUMULIN R 100 UNIT/ML 3ML SQ SCH ×5 (06:25→20:01)
[2021-01-21 07:51] VITALS: BP 118/58
[2021-01-21] MEDS: POLYETHYLENE GLYCOL 3350 17 GM POWD.PACK PO SCH (10:08)
[2021-01-21] MEDS: DOCUSATE SODIUM 100 MG CAP PO SCH ×2 (10:08→19:35)
[2021-01-21] MEDS: FAMOTIDINE 20MG VIAL IV SCH (10:09)
[2021-01-21] MEDS: DULOXETINE HCL 30 MG CAP PO SCH ×2 (10:09→19:35)
[2021-01-21] MEDS: ENOXAPARIN SODIUM 30 MG/0.3 ML SQ SCH (10:11)
[2021-01-21] MEDS: RANOLAZINE 500 MG TAB.SR.12H PO SCH ×2 (10:12→19:35)
[2021-01-21] MEDS: METFORMIN HCL 500 MG TABLET PO SCH ×2 (10:16→12:00)
[2021-01-21 11:34] VITALS: BP 121/62
[2021-01-21] MEDS: KETOROLAC 30MG VIAL (30MG/ML) IV PRN (12:11)
[2021-01-21] MEDS ORDERED: OXYCODONE HCL 5 MG TAB PO PRN ×2 (14:30→16:30)
[2021-01-21 14:34] LABS: HEMATOCRIT 33.1 % (36-48); MEAN CORPUSCULAR HEMOGLOBIN 28.9 pg (27.0-33.0); MEAN CORPUSCULAR HGB CONC 31.4 g/dL (32.0-36.0); MEAN CORPUSCULAR VOLUME 91.9 fL (79-99); RED BLOOD CELL COUNT(AUTO) 3.6 MIL/uL (4.00-5.50); RED CELL DISTRIBUTION WIDTH 14.6 % (11.0-15.5); RETICULOCYTE % (AUTO) 2.92 % (0.42-2.23); WHITE BLOOD COUNT (AUTO) 9.3 K/uL (4.8-10.8)
[2021-01-21 15:24] LABS: POTASSIUM 4.3 mmol/L (3.5-5.1); THYROID STIMULATING HORMONE 0.57 uIU/mL (0.36-3.74)
[2021-01-21] MEDS ORDERED: KETOROLAC 15MG/ML VIAL (15MG/ML) IM PRN (16:00)
[2021-01-21 17:05] VITALS: BP 97/51
[2021-01-21] MEDS ORDERED: IRON SUCROSE COMPLEX 400 MG in 0.9% NACL 250ML 250 ML IV SCH (18:00)
[2021-01-21] MEDS: GABAPENTIN 100 MG CAPSULE PO SCH (19:35)
[2021-01-21 20:00] VITALS: BP 98/41
[2021-01-21] MEDS: INSULIN GLARGINE 100 UNITS/ML 10 ML VIAL SQ SCH (20:01)
[2021-01-21] MEDS: ACETAMINOPHEN 500 MG TABLET PO SCH (21:03)
[2021-01-22] VITALS (7 sets, daily range): BP systolic 78–129; BP diastolic 39–66
[2021-01-22] MEDS: TEMAZEPAM 7.5 MG CAPSULE PO PRN (00:05)
[2021-01-22 04:28] LABS: HEMATOCRIT 28.8 % (36-48); MEAN CORPUSCULAR HEMOGLOBIN 28.3 pg (27.0-33.0); MEAN CORPUSCULAR HGB CONC 31.6 g/dL (32.0-36.0); MEAN CORPUSCULAR VOLUME 89.7 fL (79-99); RED BLOOD CELL COUNT(AUTO) 3.21 MIL/uL (4.00-5.50); RED CELL DISTRIBUTION WIDTH 14.7 % (11.0-15.5); WHITE BLOOD COUNT (AUTO) 8.1 K/uL (4.8-10.8)
[2021-01-22 04:46] LABS: ALBUMIN 2.7 g/dL (3.5-5.0); BILIRUBIN,TOTAL 0.4 mg/dL (0.2-1.0); CREATININE 0.8 mg/dL (0.5-1.5); POTASSIUM 4.4 mmol/L (3.5-5.1); TOTAL PROTEIN, SERUM 6.3 g/dL (6.0-8.3)
[2021-01-22] MEDS: ACETAMINOPHEN 500 MG TABLET PO SCH ×2 (05:11→21:55)
[2021-01-22] MEDS: LEVOTHYROXINE 25 MCG TABLET PO SCH (05:43)
[2021-01-22] MEDS: INSULIN HUMULIN R 100 UNIT/ML 3ML SQ SCH ×7 (05:44→22:42)
[2021-01-22] MEDS: DOCUSATE SODIUM 100 MG CAP PO SCH ×2 (10:22→21:55)
[2021-01-22] MEDS: POLYETHYLENE GLYCOL 3350 17 GM POWD.PACK PO SCH (10:23)
[2021-01-22] MEDS: GABAPENTIN 100 MG CAPSULE PO SCH ×2 (10:23→21:56)
[2021-01-22] MEDS: DULOXETINE HCL 30 MG CAP PO SCH ×2 (10:23→21:55)
[2021-01-22] MEDS: RANOLAZINE 500 MG TAB.SR.12H PO SCH ×2 (10:24→21:55)
[2021-01-22] MEDS: ENOXAPARIN SODIUM 30 MG/0.3 ML SQ SCH (10:26)
[2021-01-22] MEDS: ACETAMINOPHEN 325 MG TAB PO PRN (16:44)
[2021-01-22] MEDS: INSULIN GLARGINE 100 UNITS/ML 10 ML VIAL SQ SCH (21:57)
[2021-01-23 03:47] VITALS: BP 132/67
[2021-01-23] MEDS: ACETAMINOPHEN 500 MG TABLET PO SCH ×2 (05:02→22:00)
[2021-01-23] MEDS: INSULIN HUMULIN R 100 UNIT/ML 3ML SQ SCH ×7 (06:01→22:42)
[2021-01-23] MEDS: LEVOTHYROXINE 25 MCG TABLET PO SCH (06:39)
[2021-01-23] MEDS ORDERED: INSULIN HUMULIN R 100 UNIT/ML 3ML SQ SCH (07:30)
[2021-01-23 07:43] VITALS: BP 133/73
[2021-01-23 10:56] VITALS: BP 127/57
[2021-01-23] MEDS: DOCUSATE SODIUM 100 MG CAP PO SCH ×2 (11:06→22:31)
[2021-01-23] MEDS: DULOXETINE HCL 30 MG CAP PO SCH ×2 (11:07→22:31)
[2021-01-23] MEDS: GABAPENTIN 100 MG CAPSULE PO SCH ×2 (11:07→22:30)
[2021-01-23] MEDS: POLYETHYLENE GLYCOL 3350 17 GM POWD.PACK PO SCH (11:07)
[2021-01-23] MEDS: ENOXAPARIN SODIUM 30 MG/0.3 ML SQ SCH (11:08)
[2021-01-23] MEDS: RANOLAZINE 500 MG TAB.SR.12H PO SCH ×2 (11:08→22:31)
[2021-01-23] MEDS: KETOROLAC 30MG VIAL (30MG/ML) IV PRN (11:14)
[2021-01-23 15:37] VITALS: BP 136/58
[2021-01-23] MEDS ORDERED: EPOETIN ALFA-EPBX (NON-ESRD) 10,000 UNIT/ML VIAL SQ SCH (21:00)
[2021-01-23 21:31] VITALS: BP 127/63
[2021-01-23] MEDS: INSULIN GLARGINE 100 UNITS/ML 10 ML VIAL SQ SCH (22:41)
[2021-01-23 23:54] VITALS: BP 166/76
[2021-01-24] MEDS: KETOROLAC 30MG VIAL (30MG/ML) IV PRN ×3 (01:29→09:31)
[2021-01-24 03:59] LABS: HEMATOCRIT 30.3 % (36-48); MEAN CORPUSCULAR HEMOGLOBIN 28.2 pg (27.0-33.0); MEAN CORPUSCULAR HGB CONC 31.7 g/dL (32.0-36.0); MEAN CORPUSCULAR VOLUME 89.1 fL (79-99); NUCLEATED RED BLOOD CELLS 0.3 % (0.0-0.19); RED BLOOD CELL COUNT(AUTO) 3.4 MIL/uL (4.00-5.50); RED CELL DISTRIBUTION WIDTH 14.8 % (11.0-15.5); WHITE BLOOD COUNT (AUTO) 6.7 K/uL (4.8-10.8)
[2021-01-24 04:06] VITALS: BP 114/50
[2021-01-24 04:11] LABS: CREATININE 0.6 mg/dL (0.5-1.5); POTASSIUM 3.9 mmol/L (3.5-5.1)
[2021-01-24] MEDS: ACETAMINOPHEN 500 MG TABLET PO SCH ×2 (06:00→12:16)
[2021-01-24] MEDS: LEVOTHYROXINE 25 MCG TABLET PO SCH (06:30)
[2021-01-24] MEDS: INSULIN HUMULIN R 100 UNIT/ML 3ML SQ SCH ×7 (07:30→19:56)
[2021-01-24 08:10] VITALS: BP 140/64
[2021-01-24 10:44] VITALS: BP 130/57
[2021-01-24] MEDS: DOCUSATE SODIUM 100 MG CAP PO SCH ×2 (11:25→19:52)
[2021-01-24] MEDS: RANOLAZINE 500 MG TAB.SR.12H PO SCH ×2 (11:25→19:52)
[2021-01-24] MEDS: DULOXETINE HCL 30 MG CAP PO SCH ×2 (11:25→19:53)
[2021-01-24] MEDS: GABAPENTIN 100 MG CAPSULE PO SCH ×2 (11:26→19:53)
[2021-01-24] MEDS: ENOXAPARIN SODIUM 30 MG/0.3 ML SQ SCH (11:26)
[2021-01-24] MEDS: POLYETHYLENE GLYCOL 3350 17 GM POWD.PACK PO SCH (11:26)
[2021-01-24] MEDS: IRON SUCROSE COMPLEX 500 MG in 0.9% NACL 250ML 250 ML IV SCH (11:27)
[2021-01-24] MEDS ORDERED: LACTULOSE 20 GM/30 ML UDCUP PO SCH (11:30)
[2021-01-24] MEDS: LUBIPROSTONE 24 MCG CAP PO SCH ×2 (12:19→17:00)
[2021-01-24 15:23] VITALS: BP 136/62
[2021-01-24] MEDS: INSULIN GLARGINE 100 UNITS/ML 10 ML VIAL SQ SCH (19:54)
[2021-01-24 20:59] VITALS: BP 122/56
[2021-01-24] MEDS: TEMAZEPAM 7.5 MG CAPSULE PO PRN (22:38)
[2021-01-24 23:50] VITALS: BP 131/60
[2021-01-25 04:35] VITALS: BP 115/50
[2021-01-25] MEDS: INSULIN HUMULIN R 100 UNIT/ML 3ML SQ SCH ×4 (05:42→17:11)
[2021-01-25] MEDS: LEVOTHYROXINE 25 MCG TABLET PO SCH (05:43)
[2021-01-25 07:50] VITALS: BP 128/61
[2021-01-25] MEDS: RANOLAZINE 500 MG TAB.SR.12H PO SCH ×2 (08:26→19:47)
[2021-01-25] MEDS: LUBIPROSTONE 24 MCG CAP PO SCH ×2 (08:26→16:57)
[2021-01-25] MEDS: DOCUSATE SODIUM 100 MG CAP PO SCH ×2 (08:26→19:47)
[2021-01-25] MEDS: POLYETHYLENE GLYCOL 3350 17 GM POWD.PACK PO SCH (08:27)
[2021-01-25] MEDS: GABAPENTIN 100 MG CAPSULE PO SCH ×2 (08:27→19:47)
[2021-01-25] MEDS: ENOXAPARIN SODIUM 30 MG/0.3 ML SQ SCH (08:28)
[2021-01-25] MEDS: ACETAMINOPHEN 325 MG TAB PO PRN (08:35)
[2021-01-25] MEDS ORDERED: CYMBALTA 20 MG PO SCH (09:00)
[2021-01-25 10:38] VITALS: BP 133/65
[2021-01-25] MEDS: ACETAMINOPHEN 500 MG TABLET PO SCH ×2 (11:51→17:14)
[2021-01-25] MEDS: NAPROXEN 250 MG TAB PO SCH ×2 (11:54→19:38)
[2021-01-25] MEDS: IRON SUCROSE COMPLEX 500 MG in 0.9% NACL 250ML 250 ML IV SCH (11:55)
[2021-01-25 15:39] VITALS: BP 116/68
[2021-01-25] MEDS ORDERED: NAPROXEN 250 MG TAB PO SCH (21:00)
== END 2021-01-25 20:00 | DRG 481 ==
LOC: EDH 09:00 → EDHIP 12:07 → 4AH 17:43
PROVIDERS: ADMIT Hospitalist; ATTEND Hospitalist
PROC: 0QS836Z Reposition Right Femoral Shaft with Intramedullary Internal Fixation Device, Percutaneous Approach (ICD-10-PCS; principal; 2021-01-20 13:08)
DX: S72.301A Unspecified fracture of shaft of right femur, initial encounter for closed fracture (principal); E87.1 Hypo-osmolality and hyponatremia; E11.65 Type 2 diabetes mellitus with hyperglycemia; Z68.33 Body mass index [BMI] 33.0-33.9, adult; E66.01 Morbid (severe) obesity due to excess calories; E78.5 Hyperlipidemia, unspecified; D50.9 Iron deficiency anemia, unspecified; I10 Essential (primary) hypertension; Z20.822 Contact with and (suspected) exposure to COVID-19; M85.80 Other specified disorders of bone density and structure, unspecified site; R79.89 Other specified abnormal findings of blood chemistry; E78.00 Pure hypercholesterolemia, unspecified; W01.0XXA Fall on same level from slipping, tripping and stumbling without subsequent striking against object, initial encounter; Y93.89 Activity, other specified; Y92.098 Other place in other non-institutional residence as the place of occurrence of the external cause; Y99.8 Other external cause status; Z88.5 Allergy status to narcotic agent; Z91.030 Bee allergy status; Z95.5 Presence of coronary angioplasty implant and graft; Z90.710 Acquired absence of both cervix and uterus; Z04.89 Encounter for examination and observation for other specified reasons
CPT/HCPCS: 36415; 71045; 72170; 73552; 80048; 80053; 82306; 82607; 82728; 82746; 82947; 82948; 83036; 83540; 83550; 84443; 85025; 85027; 85045; 85610; 85730; 87635; 93005; 97039; G0378; J0330; J0690; J1100; J1170; J1650; J1756; J1815; J1885; J2001; J2175; J2250; J2270; J2405; J2704; J2710; J2795; J3010; J3490; J7030; J7050